=== PATIENT | male | born 1945 | race Caucasian/White ===

== ENCOUNTER → 2016-08-10 | Outpatient (CLI) | payer MEDICARE ==
[~2016-08-10] MED LIST: ACTOS DPS15 MG PO; ACTOS45 MG PO; ALDACTONE DPS25 MG PO; ASA CHILDREN'S81 MG PO; ASPIRIN EC81 MG PO; CARAFATE DPS1 GM PO; GLUCOPHAGE1000 MG PO; HCTZ PO; HYDROCHLOROTHIA25 MG PO; HYDRODIURIL-DPS25 MG PO; JANUMET 50-1,01 EACH PO; KLOR-CON M2020 ME1 PO; LASIX DPS20 MG PO; LASIX DPS40 MG PO; LASIX20 M1 PO; LIPITOR DPS10 MG PO; LIPITOR10 MG PO; LOPRESSOR DPS12.5 MG PO; MAALOX DPS30 ML PO; METAMUCIL FIBE3.4 GM PO; METAMUCIL PACK3.4 GM PO; METAMUCIL SF P3.4 GM PO; METFORMIN PO; METOPROLOL TART25 MG PO; MIRALAX PACKET17 GM PO; NORVASC DPS10 MG PO; OMEPRAZOLE40 MG PO; SENOKOT S1 TAB PO; TYLENOL DPS325 MG PO; TYLENOL EXTRA500 M1 PO; ULTRAM DPS50 MG PO; VASOTEC DPS20 MG PO; VASOTEC20 MG PO; XARELTO10 MG PO
== END | disposition home or self-care (01) ==
LOC: RAD.S 07:47
PROC: 3E0S33Z Introduction of Anti-inflammatory into Epidural Space, Percutaneous Approach (ICD-10-PCS; principal; 2016-08-10)
PROC: 3E0S3BZ Introduction of Anesthetic Agent into Epidural Space, Percutaneous Approach (ICD-10-PCS; principal; 2016-08-10)
DX: M54.12 Radiculopathy, cervical region (principal); M43.02 Spondylolysis, cervical region; M43.10 Spondylolisthesis, site unspecified; M48.00 Spinal stenosis, site unspecified

== ENCOUNTER 2016-08-27 05:39 | Day surgery (SDC) | payer MEDICARE ==
[~2016-08-27] VITALS: Ht 170.2 cm; Wt 101.3 kg
[~2016-08-27 05:39] MED LIST changes: -ACTOS45 MG PO; -ALDACTONE DPS25 MG PO; -ASA CHILDREN'S81 MG PO; -HYDROCHLOROTHIA25 MG PO; -JANUMET 50-1,01 EACH PO; -KLOR-CON M2020 ME1 PO; -LASIX DPS40 MG PO; -METAMUCIL PACK3.4 GM PO; -METAMUCIL SF P3.4 GM PO; -METOPROLOL TART25 MG PO; -MIRALAX PACKET17 GM PO; -SENOKOT S1 TAB PO; -TYLENOL EXTRA500 M1 PO; -XARELTO10 MG PO
--- NOTE | 2016-09-16 10:44 | OR ---
ADMIT: 08/27/2016 RM/LOC: [facility] MR#: [id number] [address] [place], [place] [address] NEERAJ KAUFMAN [address] [place] [address] Operative/Delivery Room Report SEX: M AGE: 71 : 1945 SURGERY DATE: 08/27/2016 SURGEON: Joaquin Keenan MD PREOPERATIVE DIAGNOSIS: History of severe gastritis, need for repeat upper endoscopy. POSTOPERATIVE DIAGNOSIS: Small 1-2 cm hiatal hernia with evidence of mild reflux changes at the GE junction, otherwise, normal-appearing stomach. PROCEDURE PERFORMED: EGD with biopsies. ANESTHESIA: Sedation. ESTIMATED BLOOD LOSS: None. DESCRIPTION OF PROCEDURE: After appropriate informed consent was obtained, the patient was brought to the endoscopy suite. IV sedation was provided. A well-lubricated endoscope was introduced and passed down the esophagus. The esophageal mucosa in the proximal and mid-esophagus appeared normal. Distal esophagus though did show evidence of reflux changes, just some mild reflux changes. No stricture or narrowing. No evidence of Maher's. He did have about 1-2 cm sliding-type hiatal hernia. The scope was advanced in the stomach. The gastric fundus and gastric antrum actually appeared normal. It appeared much improved from what it looks like approximately six months ago. The pylorus was intubated. Duodenal bulb, 2nd and 3rd portion of duodenum appeared normal. The scope was then pulled back into the stomach, retroflexed again revealing this small sliding type hiatal hernia from below. No proximal gastritis or mass. Several biopsies then taken of the antrum. Biopsies were also taken of the distal esophagus. The stomach was then deflated, the scope withdrawn without apparent complications. The patient tolerated the procedure well, and was taken to the recovery room in stable condition. Joaquin Keenan MD/ dexter JOB #: [id number] CC: Joaquin Keenan MD, Attending Physician Heraclio Salcido MD, Family Physician
[2016-10-31] MEDS ORDERED: LIPITOR DPS10 MG PO (10:26)
[2016-10-31] MEDS ORDERED: HYDROCHLOROTHIA25 MG PO (10:26)
[2016-10-31] MEDS ORDERED: NORVASC DPS10 MG PO (10:26)
[2016-10-31] MEDS ORDERED: OMEPRAZOLE40 MG PO (10:26)
[2016-10-31] MEDS ORDERED: SENOKOT S1 TAB PO (10:27)
[2016-10-31] MEDS ORDERED: MIRALAX PACKET17 GM PO (10:27)
[2016-10-31] MEDS ORDERED: ACTOS45 MG PO (10:27)
[2016-10-31] MEDS ORDERED: TYLENOL EXTRA500 M1 PO (10:27)
[2016-10-31] MEDS ORDERED: XARELTO10 MG PO (10:27)
[2016-10-31] MEDS ORDERED: METOPROLOL TART25 MG PO (10:27)
[2016-10-31] MEDS ORDERED: ASA CHILDREN'S81 MG PO (10:28)
[2016-10-31] MEDS ORDERED: ULTRAM DPS50 MG PO (10:28)
[2016-10-31] MEDS ORDERED: JANUMET 50-1,01 EACH PO (10:28)
[2016-10-31] MEDS ORDERED: METAMUCIL PACK3.4 GM PO (10:28)
[2016-12-22] MEDS ORDERED: VASOTEC DPS20 MG PO (18:19)
[2016-12-22] MEDS ORDERED: ULTRAM DPS50 MG PO (18:20)
[2016-12-22] MEDS ORDERED: LIPITOR DPS10 MG PO (18:20)
[2016-12-22] MEDS ORDERED: TYLENOL EXTRA500 M1 PO (18:20)
[2016-12-22] MEDS ORDERED: METOPROLOL TART25 MG PO (18:20)
[2016-12-22] MEDS ORDERED: OMEPRAZOLE40 MG PO (18:20)
[2016-12-22] MEDS ORDERED: KLOR-CON M2020 ME1 PO (18:22)
[2016-12-22] MEDS ORDERED: METAMUCIL SF P3.4 GM PO (18:22)
[2016-12-22] MEDS ORDERED: LASIX DPS40 MG PO (18:22)
[2016-12-22] MEDS ORDERED: ASA CHILDREN'S81 MG PO (18:22)
[2016-12-22] MEDS ORDERED: JANUMET 50-1,01 EACH PO (18:22)
[2016-12-22] MEDS ORDERED: ALDACTONE DPS25 MG PO (18:22)
== END 2016-08-27 08:32 | disposition home or self-care (01) ==
LOC: SSS 05:39
PROC: 0DB38ZX Excision of Lower Esophagus, Via Natural or Artificial Opening Endoscopic, Diagnostic (ICD-10-PCS; principal; 2016-08-27)
DX: K29.50 Unspecified chronic gastritis without bleeding (principal); K44.9 Diaphragmatic hernia without obstruction or gangrene; I10 Essential (primary) hypertension; Z79.899 Other long term (current) drug therapy

== ENCOUNTER → 2016-10-12 | Outpatient (CLI) | payer MEDICARE ==
[~2016-10-12] MED LIST changes: +ACTOS45 MG PO; +ALDACTONE DPS25 MG PO; +ASA CHILDREN'S81 MG PO; +HYDROCHLOROTHIA25 MG PO; +JANUMET 50-1,01 EACH PO; +KLOR-CON M2020 ME1 PO; +LASIX DPS40 MG PO; +METAMUCIL PACK3.4 GM PO; +METAMUCIL SF P3.4 GM PO; +METOPROLOL TART25 MG PO; +MIRALAX PACKET17 GM PO; +SENOKOT S1 TAB PO; +TYLENOL EXTRA500 M1 PO; +XARELTO10 MG PO
== END | disposition home or self-care (01) ==
LOC: PTH.S 10:01
DX: Z01.812 Encounter for preprocedural laboratory examination (principal)

== ENCOUNTER 2016-10-19 10:04 | Inpatient (IN) | payer MEDICARE ==
[~2016-10-19] VITALS: Ht 170.2 cm; Wt 104.9 kg
--- NOTE | ~2016-10-19 | ECH ---
Transthoracic Echocardiography Report (TTE) Demographics Patient Name NEERAJ KAUFMAN JR Date of Study 10/23/2016 Patient Number [id number] Visit Number [id number] Date of 1945 Room Number 506 Accession Number [id number] Gender Male Age 71 year(s) Referring Ashwini Weaver Data Miner Jennifer Estrada [facility] Physician Loly Ibarra MD Physician Interpreting Dali Bonilla Franchise Manager Physician Supervising Ordering Physician Loly Ibarra MD, MD/P Nurse Stress Venetian Blind Machine Operator Conclusions Summary Technically difficult exam to perform due to patient restlessness. Images obtained are of fair quality. The estimated left ventricular ejection fraction is 60%. The right atrium is severely dilated. Mild mitral regurgitation by color Doppler. The aortic valve was not well imaged. The aortic valve is moderately sclerotic. There is mild to moderate aortic stenosis by the Continuity Equation. The peak velocity is 3.15 m/s, the mean gradient is 22 mmHg, and the valve area based on the continuity equation is 1.4cm2, stroke volume index is 48ml/m2. There is mild aortic regurgitation by color Doppler. There is mild pulmonary hypertension. The pulmonary pressure (RVSP) is 36 mmHg. Procedure Type of Study TTE procedure:Echo Complete SF. Procedure Date Date: 10/23/2016 Start: 10:51 AM Technical Quality: Fair Indications:Dyspnea with exertion, Heart murmur and Hypertension. Appropriate Use Criteria: 9 Height: 67 inches Weight: 231 pounds BSA: 2.15 m Rhythm: Within normal limits HR: 80 bpm BP: 112/47 mmHg M-Mode/2D Measurements LV Diastolic Dimension: 5.55 cm LV Systolic Dimension: 4.51 cm LV Septum Diastolic: 1.15 cm LV PW Diastolic: 1.18 cm AO Root Dimension: 2.47 cm Cardiac Output: 8.32 l/min LA Dimension: 4.74 cm Cardiac Index: 3.87 l/min*m RV Diastolic Dimension: 4.34 cm LA volume index: 47 ml/m LVOT: 1.95 cm LVOT VTI: 34.86 cm RV Base: 4.4 cm LV Stroke volume: 104.06 ml RV Mid: 2.8 cm LV Stroke volume index: 48.4 ml/m RV Length: 7.5 cm Doppler Measurements AV Peak Velocity: 3.15 m/s MV Peak E-Wave: 1.06 m/s AV Peak Gradient: 39.69 mmHg MV Peak A-Wave: 0.71 m/s AV Mean Gradient: 22.78 mmHg MV E/A Ratio: 1.5 LVOT Peak Velocity: 1.53 m/s MV P1/2t: 56.5 msec AV Area (Continuity):1.44 cm MV Deceleration Time: 198.9 msec TR Velocity:2.79 m/s MV Area (PHT): 3.9 cm TR Gradient:31.06 mmHg PV Peak Velocity: 1.01 m/s Estimated RAP:5 mmHg PV Peak Gradient: 4.05 mmHg Estimated RVSP: 36 mmHg Estimated PASP: 36.06 mmHg RA Area: 26 cm Findings Left Ventricle The left ventricle is normal in size . Mild concentric left ventricular hypertrophy. Diastolic assessment reveals normal relaxation. Right Ventricle Normal right ventricle structure and function. Left Atrium The left atrium is moderately dilated by LA volume index measurement. Right Atrium The right atrium is severely dilated. Mitral Valve Normal mitral valve structure and function. Mild mitral regurgitation by color Doppler. Aortic Valve The aortic valve was not well imaged. The aortic valve is moderately sclerotic. There is mild to moderate aortic stenosis by the Continuity Equation. The peak velocity is 3.15 m/s, the mean gradient is 22 mmHg, and the valve area based on the continuity equation is 1.4cm2, stroke volume index is 48ml/m2. There is mild aortic regurgitation by color Doppler. Tricuspid Valve Normal tricuspid valve structure and function. Mild tricuspid regurgitation by color Doppler. There is mild pulmonary hypertension. The pulmonary pressure (RVSP) is 36 mmHg. Pulmonic Valve Normal pulmonic valve structure and function. Pericardial Effusion No evidence of pericardial effusion. Miscellaneous Visualized portions of the aortic root and ascending aorta appear normal in size. Pleural Effusion No evidence of pleural effusion. Contractility Score LV regional wall motion:(0-Non visualized 1-Normal 2-Hypokinesis 3-Akinesis 4-Dyskinesis 5-Aneurysm) Signature
[~2016-10-19 10:04] MED LIST changes: -ACTOS45 MG PO; -ALDACTONE DPS25 MG PO; -ASA CHILDREN'S81 MG PO; -HYDROCHLOROTHIA25 MG PO; -JANUMET 50-1,01 EACH PO; -KLOR-CON M2020 ME1 PO; -LASIX DPS40 MG PO; -METAMUCIL PACK3.4 GM PO; -METAMUCIL SF P3.4 GM PO; -METOPROLOL TART25 MG PO; -MIRALAX PACKET17 GM PO; -SENOKOT S1 TAB PO; -TYLENOL EXTRA500 M1 PO; -XARELTO10 MG PO
--- NOTE | 2016-10-20 07:50 | OR ---
ADMIT: 10/19/2016 RM/LOC: 506 [facility] MR#: [id number] [address] [address] NEERAJ KAUFMAN [address] [place] [address] Operative/Delivery Room Report SEX: M AGE: 71 : 1945 SURGERY DATE: 10/19/2016 SURGEON: Willow Bentley MD PREOPERATIVE DIAGNOSIS: Right hip osteoarthritis. POSTOPERATIVE DIAGNOSIS: Right hip osteoarthritis. PROCEDURE: Right total hip arthroplasty. COAL MINER: SRIRAM Rivas. ANESTHESIA: Spinal. ESTIMATED BLOOD LOSS: 250 mL. SPECIMEN: Bone. COMPLICATIONS: None. COMPONENTS: DePuy #6 standard [place] Porous femoral stem, 54 mm [place] Sector cup with a neutral liner. A 36 mm metallic head with a +8.5 neck length. DESCRIPTION OF PROCEDURE: This patient was brought to the operating room, and after a satisfactory level anesthesia was achieved, he was positioned on the operative table in a left lateral decubitus position. All bony prominences were well padded. Axillary roll was placed under the axilla and after proper positioning, the right lower extremity was circumferentially prepped and draped in the usual sterile fashion. A posterior approach to the hip was made carrying my skin incision through the deep subcutaneous layer down to the iliotibial band, which was split below the trochanter and then carried up to the tip of the trochanter. The gluteus teri fibers were split posteriorly through a posterior approach. A retractor was placed deep to the iliotibial band, and then the gluteus medius was elevated off the piriformis, and a capsulotomy performed above the piriformis. The piriformis was released from the piriformis fossa and then the external rotators were removed from the trochanter using electrocautery and subperiosteal dissection. This flap of tissue was preserved and retracted from the field. The hip was then dislocated. Using a step drill, the piriformis fossa was opened and then using a canal finder, a lateralizing reamer, and the standard reamers are reamed up to a #6, and then used an external alignment guide to make my femoral neck cut. Femoral broaches were then used and opened the canal. I found that a #6 gave us the best fit and fill of the proximal femur. The broach was then removed and after proper positioning of retractors around the acetabulum, I measured the femoral head at 51 mm and started reaming with a 45 mm reamer bottoming this out in the acetabular fossa. I then enlarged my reaming up to a 53 mm and I seated a 54 mm acetabular component in an anatomic position based on internal landmarks and particularly the transverse acetabular ligament. The ADMIT: 10/19/2016 RM/LOC: 506 [facility] MR#: [id number] [address] [address] NEERAJ KAUFMAN [address] [place] [address] Operative/Delivery Room Report SEX: M AGE: 71 : 1945 anterior lip of the cup was inside and parallel to the transverse acetabular ligament indicating correct anteversion and abduction. A trial liner was placed in the acetabulum, and the #6 broach was then placed back in the femur. He had templated out for a standard and not a high offset neck; therefore, we tried both 1.5 and 8.5 mm neck lengths and found that the best methodist of soft tissue tension with good maintenance of stability was 8.5. All trial components were then removed. My neutral liner was impacted in the acetabulum. My #6 standard stem was impacted in the femur, and a metallic 36 mm head with a +8.5 neck length was impacted onto the femur and the hip reduced. Once again, I could flex the patient to 90 degrees, completely abduct his hip, and he would not sublux posteriorly until I cut him at about 75 to 80 degrees of internal rotation. Anterior osteophytes had been removed from the anterior lip of the acetabulum and this helped to prevent any anterior impingement. The wound was thoroughly irrigated using pulsatile lavage. The capsule was closed with interrupted #5 Ethibond. Then, the piriformis repaired with #5 Ethibond through drill holes in the trochanter. The iliotibial band and gluteus teri fascia were then closed with interrupted #1 Vicryl and running #2 Quill suture. The subcutaneous tissue was reapproximated with 2-0 Vicryl, and the skin with jh. Sterile dressing was applied. He was then transferred from the operative suite in stable condition. Willow Bentley MD/ dexter JOB #: [id number] CC: Willow Bentley MD, Attending Physician Heraclio Salcido MD, Family Physician
--- NOTE | 2016-10-22 13:05 | CO ---
ADMIT: 10/19/2016 RM/LOC: 506 [facility] MR#: [id number] [address] [address] STEPHEN KAUFMAN [address] [place] [address] Consultation SEX: M AGE: 71 : 1945 DATE OF CONSULTATION: 10/20/2016 ATTENDING PHYSICIAN: Willow Bentley MD CONSULTING PHYSICIAN: Owen Maradiaga MD REASON FOR CONSULT: Bradycardia and aortic stenosis history. Debora Whittaker RN, scribing for Dr. Owen Maradiaga. HISTORY OF PRESENT ILLNESS: Stephen is a pleasant 71-year-old gentleman, I have been asked to see in Cardiology consultation by Dr. Salcido for bradycardia and history of aortic stenosis. Stephen follows with Dr. Byron Lopez. He was last seen on 10/12 of this year for preoperative clearance prior to surgery that was planned yesterday. He has history of hypertension, hyperlipidemia, diabetes, tobacco use, and family history of coronary artery disease. He has never had cardiac catheterization, has no documented coronary artery disease himself. Last echocardiogram was in July of 2016, showing EF of 60% with moderate aortic sclerosis with no evidence of aortic stenosis at that time. In February of 2016, he did have mild aortic stenosis. He does have history of frequent PVCs. He wore a Holter monitor in 2014 that demonstrated 28% of the time he was having PVCs. These are usually non-perfusing. Stephen also has history of sleep apnea, but has been unable to tolerate CPAP. Stephen had underwent a right total hip arthroplasty yesterday and tolerated the procedure well. He has had some bradycardia on routine vital signs. He is not on telemetry. Looking EKGs, he does have frequent PVCs that are likely non- perfusing. He denies any chest pain, shortness of breath, palpitations, or presyncope. He is working with Physical Therapy and denies any limitations with lightheadedness or weakness. Cardiac enzymes were drawn, CK and MB were elevated consistent with recent surgery. His troponin was negative. PAST MEDICAL HISTORY: 1. Hypertension. 2. Hyperlipidemia. 3. Diabetes. 4. Former tobacco use. 5. Frequent PVCs. 6. Gastroesophageal reflux disease. 7. Obesity. 8. Osteoarthritis. 9. Sleep apnea, untreated. 10.Tubular adenoma. PAST SURGICAL HISTORY: Includes: 1. EGD with biopsies. 2. Hernia repair. 3. Left total knee arthroplasty. 4. Right total knee arthroplasty, yesterday. ADMIT: 10/19/2016 RM/LOC: 506 [facility] MR#: [id number] [facility] [address] [address] STEPHEN KAUFMAN [address] [place] [address] Consultation SEX: M AGE: 71 : 1945 5. Right knee arthroscopy in 2003. 6. Rotator cuff repair x3. 7. Heel spur removed. ALLERGIES: NO KNOWN MEDICATION ALLERGIES. MEDICATIONS: Current medications include: 1. Actos 45 p.o. daily with meals. 2. Celebrex 200 p.o. b.i.d. 3. Glucophage 1000 mg p.o. b.i.d. 4. HydroDIURIL 25 mg p.o. daily. 5. Januvia 50 mg p.o. b.i.d. 6. Lasix 10 mg p.o. daily. 7. Lipitor 10 q.48 hours. 8. Lopressor 25 mg p.o. b.i.d., has been held as of this morning. 9. Metamucil 3.4 g p.o., b.i.d. 10.MiraLAX 17 g p.o. daily. 11.Norvasc 10 p.o. daily. 12.Protonix 40 daily. 13.Senokot-S two tabs at bedtime. 14.Ultram 50 p.o. four times a day. 15.Vasotec 20 p.o. b.i.d. 16.Xarelto 10 q.24 hours p.o. 17.NovoLog sliding scale before a.c. and at bedtime. 18.Ancef 2 g IV q.8 hours. FAMILY HISTORY: Positive family history of coronary artery disease in father who at the age of 68 from that. Maternal and had a myocardial infarction at the age of 60. Father also had high blood pressure and cancer. SOCIAL HISTORY: Stephen is . He lives at home with his . He has 4 children. He quit smoking in the past after a 10 pack year history. He consumes alcohol on a social basis. He has about a one cup of coffee a day. Denies any routine exercise or special diet. REVIEW OF SYSTEMS: GENERAL: Denies increased fatigue, other then with postop medications. No fever, chills, sweats, or weight changes. EYES: History of glasses. Denies any vision changes. ENT: Denies hearing loss or problems with nose, mouth or throat. RESPIRATORY: He has history of obstructive sleep apnea, not treated. No hemoptysis or wheezing. GASTROINTESTINAL: Denies any GI bleeding, hiatal hernia, or trouble swallowing. He does have history of GERD. GENITOURINARY: No troubles with urination. No kidney stones or kidney failure. MUSCULOSKELETAL: History of osteoarthritis. Denies any gout. He does have muscle joint pain postoperatively. ENDOCRINE: History of diabetes. Denies thyroid disease. HEMATOLOGIC: Denies history of anemia, easy bruising, or cancer. ADMIT: 10/19/2016 RM/LOC: 506 [facility] MR#: [id number] [address] [address] STEPHEN KAUFMAN [address] [place] [address] Consultation SEX: M AGE: 71 : 1945 NEUROLOGIC: Denies chronic headaches, dizziness, syncope, stroke, seizures or numbness or tingling. PSYCHIATRIC: Denies history of mental illness or feelings of depression. PHYSICAL EXAMINATION: VITAL SIGNS: Blood pressure 129/59, heart rate 30 to 60, respirations 18, temperature 97.6, oxygenation 91% on room air. SKIN: [place], warm and dry. EYES: Sclerae clear. No xanthelasmas. ENT: Oral mucosa is pink and moist. No jugular venous distention or carotid bruits. CHEST: Respirations are even and unlabored. Lungs are clear to auscultation. HEART: Regular rate and rhythm. Normal S1, S2. No murmurs, rubs or gallops. ABDOMEN: Soft and nontender. MUSCULOSKELETAL: Gait is normal. EXTREMITIES: Peripheral pulses palpable. No clubbing, cyanosis or edema. PSYCHIATRIC: Alert and oriented. Mood and affect are appropriate. DIAGNOSTIC DATA: Sodium 138, potassium 3.9, BUN 20, creatinine 1.1, glucose 129. CK 1128, MB 7.6, troponin less than 0.015. White blood cell count 10.0, hemoglobin 10.7, hematocrit 33.7, platelets 173. ASSESSMENT AND PLAN: 1. Sinus bradycardia. 2. Premature ventricular contractions chronic. 3. Status post right total hip arthroplasty. 4. Untreated obstructive sleep apnea. I suspect his low heart rate was secondary to PVCs and he was asymptomatic. Recent echocardiogram was normal. I would recommend restarting his beta raina and monitor him on telemetry for today. Thank you for the consultation. I have read and agree with the documentation that has been completed regarding this visit. By signing this record, I attest that the documentation was completed in my physical presence and is an accurate record of the encounter. Debora Whittaker RN / Owen Maradiaga MD / modl JOB #: [id number] CC: Willow Bentley MD, Attending Physician Heraclio Salcido MD, Family Physician
--- NOTE | 2016-10-26 08:36 | CO ---
ADMIT: 10/19/2016 RM/LOC: W.02 [facility]#: [id number] [id number] [address] [address] STEPHEN KAUFMAN [address] [place] [address] Consultation Report SEX: M AGE: 71 : 1945 DATE OF CONSULTATION: 10/12/2016 ATTENDING PHYSICIAN: Willow Bentley MD CONSULTING PHYSICIAN: Heraclio Salcido MD REASON FOR CONSULT: Medical comanagement. HISTORY OF PRESENT ILLNESS: Stephen is a very pleasant, 71-year-old white male, who presented to the outpatient clinic for a preoperative consultation for an upcoming right total hip arthroplasty to be performed on 10/19/[address] Bentley. Stephen was actually just at the [facility] office earlier today for preoperative clearance with his cap and stud machine operator, Dr. Lopez, and he reports he was cleared by Dr. Lopez to proceed. Stephen is otherwise in his usual state of health today and is denying any chest pain, shortness of breath, dyspnea on exertion, abdominal pain, nausea, vomiting, or diarrhea. He has no chronic lung disease. He does have known heart disease, and again has been cleared by his cap and stud machine operator. PAST MEDICAL HISTORY: Remarkable for: 1. Diabetes mellitus type 2. Most recent hemoglobin A1c on 09/23/2016 was 7.8. 2. Hyperlipidemia. 3. Coronary artery disease. 4. Obstructive sleep apnea. 5. Aortic valve stenosis. 6. History of antral gastritis and GI bleed. 7. Hypertension. 8. Primary osteoarthritis of the right hip. 9. Significant osteoarthritis of the cervical spine. 10.Osteoarthritis of the right knee. 11.Actinic keratoses. 12.History of tubular adenoma. PAST SURGICAL HISTORY: Includes: 1. Herniorrhaphy in January [address] Keenan. 2. Arthroscopy of the left knee in 2006, 1995, 1996, 1994. 3. EGD x2, first in February of [address] Keenan, and again in August [address] Keenan. 4. Total right knee replacement, 2009. 5. Rotator cuff repair 2005, 2000, and 1999. 6. Excision of heel spur. MEDICATIONS: His outpatient medications include: 1. Enalapril 20 mg twice daily. 2. Lipitor 10 mg every other day. 3. Lasix 10 mg daily. 4. Hydrochlorothiazide 25 mg daily. 5. Norvasc 10 mg daily. ADMIT: 10/19/2016 RM/LOC: W.02 [facility] MR#: [id number] [address] [address] STEPHEN KAUFMAN [address] [place] [address] Consultation Report SEX: M AGE: 71 : 1945 6. Metoprolol 25 mg twice daily. 7. Actos 45 mg daily. 8. Omeprazole 40 mg daily. 9. Janumet one tab twice daily. 10.Metamucil daily. 11.Tramadol 50 mg, one to two tabs every 6 hours as needed for pain. 12.Maalox as needed. 13.Tylenol 325 mg one to two tabs every 4 hours as needed. 14.Aspirin 81 mg daily. ALLERGIES: NO KNOWN MEDICAL ALLERGIES. SOCIAL HISTORY: He is a former smoker, he quit 30 years ago. He is . He denies any drug or alcohol use. FAMILY HISTORY: Noncontributory. REVIEW OF SYSTEMS: As per HPI. All others were reviewed and were negative. PHYSICAL EXAMINATION: VITAL SIGNS: Blood pressure is 120/70, weight 220 pounds, height 66 inches, pulse 56, respirations 16, temp 98.8. GENERAL: He is awake, alert, no acute distress, comfortable in the exam room. He is obese centrally. HEENT: Normocephalic, atraumatic. NECK: Supple. No lymphadenopathy. No thyromegaly. HEART: Regular rate and rhythm. No murmurs, gallops, or rubs. LUNGS: Clear to auscultation bilaterally. ABDOMEN: Obese, soft, nontender, and nondistended. No rebound, guarding, or masses. EXTREMITIES: He has trace pitting edema bilaterally. LABORATORY AND X-RAY DATA: Please refer to his admission CBC and BMP. ASSESSMENT: 1. Primary osteoarthritis of the right hip. 2. Diabetes mellitus type 2. 3. Hypertension. ADMIT: 10/19/2016 RM/LOC: W.02 [facility] MR#: [id number] [facility] [address] [id number] STEPHEN KAUFMAN [address] [place] [address] Consultation Report SEX: M AGE: 71 : 1945 4. History of antral gastritis. 5. Aortic valve stenosis, nonrheumatic. 6. Obstructive sleep apnea. 7. Coronary artery disease. 8. Obesity. PLAN: At this time, Stephen is cleared for surgery. Please refer to his JOSEF note. He has already held his aspirin. He is encouraged to continue taking his Lopressor, his Norvasc, his amlodipine, and his omeprazole with a sip of water the morning of surgery. The remainder of his medications will be renewed and restarted following surgery. We will plan on DENNIS's, SCD's, and Xarelto for postop DVT prophylaxis. Expect routine postop course will plan following along. Heraclio Salcido MD/ dexter JOB #: [id number] CC: Willow Bentley MD, Attending Physician
[2016-10-31] MEDS ORDERED: LIPITOR DPS10 MG PO (10:26)
[2016-10-31] MEDS ORDERED: NORVASC DPS10 MG PO (10:26)
[2016-10-31] MEDS ORDERED: HYDROCHLOROTHIA25 MG PO (10:26)
[2016-10-31] MEDS ORDERED: OMEPRAZOLE40 MG PO (10:26)
[2016-10-31] MEDS ORDERED: METOPROLOL TART25 MG PO (10:27)
[2016-10-31] MEDS ORDERED: TYLENOL EXTRA500 M1 PO (10:27)
[2016-10-31] MEDS ORDERED: ACTOS45 MG PO (10:27)
[2016-10-31] MEDS ORDERED: XARELTO10 MG PO (10:27)
[2016-10-31] MEDS ORDERED: MIRALAX PACKET17 GM PO (10:27)
[2016-10-31] MEDS ORDERED: SENOKOT S1 TAB PO (10:27)
[2016-10-31] MEDS ORDERED: JANUMET 50-1,01 EACH PO (10:28)
[2016-10-31] MEDS ORDERED: ULTRAM DPS50 MG PO (10:28)
[2016-10-31] MEDS ORDERED: METAMUCIL PACK3.4 GM PO (10:28)
[2016-10-31] MEDS ORDERED: ASA CHILDREN'S81 MG PO (10:28)
--- NOTE | 2016-11-03 08:28 | HP ---
ADMIT: 10/19/2016 RM/LOC: W.02 [facility] MR#: [id number] [address] [address] NEERAJ KAUFMAN [address] [place] [address] Pre-OP History and Physical SEX: M AGE: 71 : 1945 DATE OF SERVICE: CHIEF COMPLAINT: Osteoarthritis, right hip. HISTORY OF PRESENT ILLNESS: This patient presents today. He has had a long history of back and leg pain, but primarily groin pain at this time. He has been diagnosed with osteoarthritis of the hip. He has had the usual conservative care and now presents for surgical treatment. PAST HISTORY MEDICATIONS: MEDICATIONS: 1. Omeprazole. 2. Vasotec. 3. Metformin. 4. Enalapril. 5. Lipitor. 6. Lasix. ALLERGIES: NO ALLERGIES TO MEDICATIONS. FAMILY HISTORY: Noncontributory. SOCIAL HISTORY: Former smoker. The patient is and lives here in [place]. REVIEW OF SYSTEMS: Negative. PHYSICAL EXAMINATION: This patient has no internal rotation of the right hip. He flexes to 130 degrees, abducts 30 degrees. DIAGNOSTIC DATA: Radiographs show complete collapse of the joint space with subchondral sclerosis, and marginal osteophytes. IMPRESSION: Osteoarthritis, right hip. RECOMMENDATIONS: Right total hip arthroplasty. Risks, benefits, alternatives, as well as potential complications were discussed. Willow Bentley MD/ dexter JOB #: [id number] CC: Willow Bentley MD, Attending Physician
--- NOTE | 2016-11-03 10:38 | CO ---
ADMIT: 10/19/2016 RM/LOC: [facility] MR#: [id number] [facility]#: [id number] [address] [address] NEERAJ KAUFMAN [address] [place] [address] Consultation SEX: M AGE: 71 : 1945 DATE OF CONSULTATION: 10/22/2016 ATTENDING PHYSICIAN: Willow Bentley MD CONSULTING PHYSICIAN: Juan Dominguez MD REASON FOR CONSULTATION: Hyponatremia. HISTORY OF PRESENT ILLNESS: The patient is a 71-year-old gentleman, who was admitted to the hospital for an elective right hip arthroplasty that he underwent 3 days ago. He has been having hyponatremia postoperatively with a sodium of 138 two days ago, 132 yesterday, and 128 today. He is accompanied at this time by his family at his bedside that includes his two daughters and his . He reports that he has had no appetite and poor oral intake. He has been having pain in his right hip. Denies any nausea. He denies any urinary complaints. He has been drinking a lot of fluids. His I's and O's charting over the last 24 hours shows about 2 L of oral fluid intake. Otherwise, he denies any dyspnea or chest pain. REVIEW OF SYSTEMS: A complete review of systems is negative in detail except as mentioned in the history of present illness above. PAST MEDICAL HISTORY: 1. Hypertension. 2. Diabetes mellitus, type 2. 3. Aortic stenosis. 4. Dyslipidemia. 5. Gastroesophageal reflux disease. 6. Obesity. 7. Osteoarthritis. 8. Obstructive sleep apnea. 9. Tubular adenoma. PAST SURGICAL HISTORY: 1. Left total knee arthroplasty. 2. Right total knee arthroplasty. 3. Hernia repair. ALLERGIES: NO KNOWN DRUG ALLERGIES. MEDICATIONS: Reviewed in the chart. SOCIAL HISTORY: Lives with his . He is . He has four children. Former smoker, quit smoking several years ago. Drinks alcohol socially. FAMILY HISTORY: Father had heart disease as well as hypertension. PHYSICAL EXAMINATION: VITAL SIGNS: Temperature 97.2 Fahrenheit, pulse 84, blood pressure 157/75, and saturating 97% on room air. ADMIT: 10/19/2016 RM/LOC: [facility] MR#: [id number] [address] [address] NEERAJ KAUFMAN F [address] [place] [address] Consultation SEX: M AGE: 71 : 1945 GENERAL: He is comfortable in bed. HEENT: Head is nontraumatic and normocephalic. Extraocular movements are intact. CHEST: Clear to auscultation. CARDIOVASCULAR SYSTEM: Regular rhythm. S1 and S2 are heard. No rubs, murmurs, or gallops. ABDOMEN: Soft and nontender. EXTREMITIES: No edema. NEUROLOGIC: Alert, awake, and oriented x3. He is able to move all his extremities. LABORATORY DATA: Reviewed. BMP with sodium 128, potassium 3.8, creatinine 1.2, CO2 of 27. Hemoglobin 10.6. ASSESSMENT AND PLAN: Hyponatremia - Most likely secondary to relatively increased fluid intake. The triggers for ADH secretion are probably pain and nausea. I will check urine studies including urine osmolality and urine electrolytes. I will restrict fluid intake as has been ordered by yourself already. I will encourage solute intake, and we will have him drink protein shakes in the meantime. He is noted to be on diuretics, and I will continue these for now and titrate this according to his volume status, blood pressure, and laboratories. Please do not hesitate to contact with any questions. Juan Dominguez MD/ dexter JOB #: [id number] CC: Willow Bentley MD, Attending Physician Heraclio Salcido MD, Family Physician
--- NOTE | 2016-11-11 13:48 | DS ---
ADMIT: 10/19/2016 RM/LOC: [facility] [id number] [id number] [address] [address] NEERAJ KAUFMAN [address] [place] [address] General Discharge Summary SEX: M AGE: 71 : 1945 ADMISSION DATE: 10/19/2016 DISCHARGE DATE: 10/23/2016 REASON FOR ADMISSION: Elective right total hip arthroplasty after failing conservative care. PREOPERATIVE DIAGNOSIS: Right hip osteoarthritis. POSTOPERATIVE DIAGNOSIS: Right hip osteoarthritis. PROCEDURE PERFORMED: Right total hip arthroplasty. SURGEON: Willow Bentley MD WEED INSPECTOR: SRIRAM Encarnacion ANESTHESIA: Spinal. ESTIMATED BLOOD LOSS: 250 mL. COMPLICATIONS: None. ACTIVE MEDICAL PROBLEMS: Hypertension, hyperlipidemia, diabetes, frequent PVCs, gastroesophageal reflux disease, obesity, osteoarthritis, sleep apnea, and history of tobacco use as well as tubular adenoma. HOSPITAL COURSE: The patient was admitted on 10/19/2016 for elective right total hip arthroplasty done successfully without any complications by Dr. Bentley. The patient tolerated the procedure well. On postoperative day #1, the patient suffered from some hypotension, which was treated by holding some of his metoprolol and Vasotec medications. This seemed to resolve the problem, and he has no other issues with low blood pressure. He did as expected suffer from acute blood loss anemia. His hemoglobin dropped to 9.5 on 10/23/2016, but he remained hemodynamically stable and did not require blood transfusion. By postoperative day #3, he was doing well with physical therapy and not having a lot of pain. He was safe, stable, and ready for discharge to a snf facility with plans for physical therapy take- home exercises. DISCHARGE MEDICATIONS: 1. Tramadol 50 mg 1 to 2 every 6 hours as needed for pain. 2. Flexeril 5 mg 1 to 2 every 8 hours as needed for muscle spasms. 3. Amlodipine 10 mg daily. 4. Enalapril 20 mg twice a day. 5. Hydrochlorothiazide 25 mg daily. 6. Atorvastatin 10 mg every other day. ADMIT: 10/19/2016 RM/LOC: [address] [facility] MR#: [id number] [address] [address] NEERAJ KAUFMAN [address] [place] [address] General Discharge Summary SEX: M AGE: 71 : [address] 40 mg daily. 8. Pioglitazone 45 mg daily. 9. Furosemide 10 mg daily. 10.Metoprolol tartrate 25 mg twice a day. 11.Janumet mg twice a day. 12.Tylenol 500 mg every 4 hours as needed. 13.Metamucil twice a day. DISCHARGE INSTRUCTIONS: The patient was discharged to [facility] with plans to continue physical therapy exercises. Follow up in the orthopedic office in 2 weeks for wound check, in 6 weeks with x-ray. Follow up with primary care as directed. SRIRAM Valdes / Willow Bentley MD / dexter JOB #: [id number] CC: Willow Bentley MD, Attending Physician Heraclio Salcido MD, Family Physician
[2016-12-22] MEDS ORDERED: VASOTEC DPS20 MG PO (18:19)
[2016-12-22] MEDS ORDERED: METOPROLOL TART25 MG PO (18:20)
[2016-12-22] MEDS ORDERED: TYLENOL EXTRA500 M1 PO (18:20)
[2016-12-22] MEDS ORDERED: OMEPRAZOLE40 MG PO (18:20)
[2016-12-22] MEDS ORDERED: ULTRAM DPS50 MG PO (18:20)
[2016-12-22] MEDS ORDERED: LIPITOR DPS10 MG PO (18:20)
[2016-12-22] MEDS ORDERED: LASIX DPS40 MG PO (18:22)
[2016-12-22] MEDS ORDERED: METAMUCIL SF P3.4 GM PO (18:22)
[2016-12-22] MEDS ORDERED: ALDACTONE DPS25 MG PO (18:22)
[2016-12-22] MEDS ORDERED: ASA CHILDREN'S81 MG PO (18:22)
[2016-12-22] MEDS ORDERED: KLOR-CON M2020 ME1 PO (18:22)
[2016-12-22] MEDS ORDERED: JANUMET 50-1,01 EACH PO (18:22)
== END 2016-10-23 17:50 | DRG 470 ==
LOC: 5MS 10:04 → WOR 10:04 → 5MS 14:53
PROVIDERS: ADMIT Orthopaedic Surgery
PROC: 0SR902A Replacement of Right Hip Joint with Metal on Polyethylene Synthetic Substitute, Uncemented, Open Approach (ICD-10-PCS; principal; 2016-10-19)
DX: M16.11 Unilateral primary osteoarthritis, right hip (principal); F05 Delirium due to known physiological condition; E11.9 Type 2 diabetes mellitus without complications; E87.1 Hypo-osmolality and hyponatremia; J98.11 Atelectasis; I35.0 Nonrheumatic aortic (valve) stenosis; E66.9 Obesity, unspecified; E78.5 Hyperlipidemia, unspecified; E53.8 Deficiency of other specified B group vitamins; I25.10 Atherosclerotic heart disease of native coronary artery without angina pectoris; G47.33 Obstructive sleep apnea (adult) (pediatric); K21.9 Gastro-esophageal reflux disease without esophagitis; I10 Essential (primary) hypertension; M47.812 Spondylosis without myelopathy or radiculopathy, cervical region; I49.3 Ventricular premature depolarization; L57.0 Actinic keratosis; Z96.651 Presence of right artificial knee joint; Z87.891 Personal history of nicotine dependence; Z79.84 Long term (current) use of oral hypoglycemic drugs; Z79.82 Long term (current) use of aspirin; Z82.49 Family history of ischemic heart disease and other diseases of the circulatory system; Z68.34 Body mass index [BMI] 34.0-34.9, adult

== ENCOUNTER 2016-10-23 15:58 | Inpatient (IN) | payer MEDICARE ==
[~2016-10-23] VITALS: Ht 170.2 cm; Wt 101.0 kg
--- NOTE | 2016-10-30 11:52 | NUR ---
PATIENT NOTE NEERAJ HAS BEEN D/C TO HIS HOME FOLLOWING A 7 DAY STAY HERE AT [facility]. THIS D/C IS PER HIS AND FAMILIES REQUEST, THEY ARE AWARE OF THE THERAPY GOAL DATE OF 11/06. NEERAJ CAME TO US FOLLOWING HIS RIGHT TOTAL HIP SURGERY FOR SHORT TERM REHAB. HE LIVES HERE IN [place] WITH HIS YONATAN. NEERAJ WILL CONTINUE HIS PHYSICAL THERAPY ON AN OUTPT. BASIS AND THIS HAS BEEN ARRANGED BY OUR THERAPY DEPT. HE HAD HIS OWN WALKER HERE IN HIS ROOM. NEERAJ WAS HERE UNDER HIS MEDICARE [place] WITH THERAPY THE SKILL[facility]. HE REMAINED ALERT WITH FORGETFULNESS, BUT VERY KIND AND PLEASANT. I WISHED THEM WELL AT HOME.
[2016-10-31] MEDS ORDERED: LIPITOR DPS10 MG PO (10:26)
[2016-10-31] MEDS ORDERED: HYDROCHLOROTHIA25 MG PO (10:26)
[2016-10-31] MEDS ORDERED: OMEPRAZOLE40 MG PO (10:26)
[2016-10-31] MEDS ORDERED: NORVASC DPS10 MG PO (10:26)
[2016-10-31] MEDS ORDERED: SENOKOT S1 TAB PO (10:27)
[2016-10-31] MEDS ORDERED: XARELTO10 MG PO (10:27)
[2016-10-31] MEDS ORDERED: MIRALAX PACKET17 GM PO (10:27)
[2016-10-31] MEDS ORDERED: METOPROLOL TART25 MG PO (10:27)
[2016-10-31] MEDS ORDERED: TYLENOL EXTRA500 M1 PO (10:27)
[2016-10-31] MEDS ORDERED: ACTOS45 MG PO (10:27)
[2016-10-31] MEDS ORDERED: JANUMET 50-1,01 EACH PO (10:28)
[2016-10-31] MEDS ORDERED: ULTRAM DPS50 MG PO (10:28)
[2016-10-31] MEDS ORDERED: ASA CHILDREN'S81 MG PO (10:28)
[2016-10-31] MEDS ORDERED: METAMUCIL PACK3.4 GM PO (10:28)
[2016-12-22] MEDS ORDERED: VASOTEC DPS20 MG PO (18:19)
[2016-12-22] MEDS ORDERED: TYLENOL EXTRA500 M1 PO (18:20)
[2016-12-22] MEDS ORDERED: METOPROLOL TART25 MG PO (18:20)
[2016-12-22] MEDS ORDERED: OMEPRAZOLE40 MG PO (18:20)
[2016-12-22] MEDS ORDERED: ULTRAM DPS50 MG PO (18:20)
[2016-12-22] MEDS ORDERED: LIPITOR DPS10 MG PO (18:20)
[2016-12-22] MEDS ORDERED: JANUMET 50-1,01 EACH PO (18:22)
[2016-12-22] MEDS ORDERED: METAMUCIL SF P3.4 GM PO (18:22)
[2016-12-22] MEDS ORDERED: LASIX DPS40 MG PO (18:22)
[2016-12-22] MEDS ORDERED: KLOR-CON M2020 ME1 PO (18:22)
[2016-12-22] MEDS ORDERED: ASA CHILDREN'S81 MG PO (18:22)
[2016-12-22] MEDS ORDERED: ALDACTONE DPS25 MG PO (18:22)
== END 2016-10-30 11:10 | disposition home or self-care (01) | DRG 560 ==
LOC: SNU 15:58
PROVIDERS: ADMIT Family Medicine
PROC: F07Z9ZZ Gait Training/Functional Ambulation Treatment (ICD-10-PCS; principal; 2016-10-23)
PROC: F08Z4ZZ Home Management Treatment (ICD-10-PCS; principal; 2016-10-23)
DX: Z47.1 Aftercare following joint replacement surgery (principal); D62 Acute posthemorrhagic anemia; E11.9 Type 2 diabetes mellitus without complications; I35.0 Nonrheumatic aortic (valve) stenosis; I10 Essential (primary) hypertension; Z96.641 Presence of right artificial hip joint; E66.9 Obesity, unspecified; Z68.35 Body mass index [BMI] 35.0-35.9, adult; E78.5 Hyperlipidemia, unspecified; I25.10 Atherosclerotic heart disease of native coronary artery without angina pectoris; G47.33 Obstructive sleep apnea (adult) (pediatric); M47.812 Spondylosis without myelopathy or radiculopathy, cervical region; I49.3 Ventricular premature depolarization; L57.0 Actinic keratosis; Z96.651 Presence of right artificial knee joint; Z87.891 Personal history of nicotine dependence; Z79.84 Long term (current) use of oral hypoglycemic drugs; Z79.82 Long term (current) use of aspirin; Z82.49 Family history of ischemic heart disease and other diseases of the circulatory system